=== PATIENT | male | born 1970 ===

== ENCOUNTER 2024-12-05 20:52 | Emergency (ER) | payer OTHER ==
[~2024-12-05] VITALS: Ht 175.3 cm; Wt 72.6 kg
[~2024-12-05 20:52] MED LIST: CRUTCH USE; HYDACE5 PO
[2024-12-05 23:32] LABS: BASOPHILS ABSOLUTE AUTO 0.05 K/mm3 (0.00-0.23); BASOPHILS PERCENT AUTO 1 % (0-2); EOSINOPHILS PERCENT AUTO 0 % (0-6); Hematocrit 36.1 % (37.0-53.0); Hemoglobin 12.5 g/dL (13.5-17.5); IMMATURE GRAN ABSOLUTE AUTO 0.03 K/mm3 (0.00-0.10); IMMATURE GRAN PERCENT AUTO 0 % (0-1); LYMPHOCYTES ABSOLUTE AUTO 0.54 K/mm3 (0.84-5.20); LYMPHOCYTES PERCENT AUTO 6 % (21-46); MONOCYTES ABSOLUTE AUTO 0.99 K/mm3 (0.16-1.47); MONOCYTES PERCENT AUTO 12 % (4-13); Mean Corpuscular HGB 34.1 pg (26.0-34.0); Mean Corpuscular HGB Conc 34.6 g/dL (31.5-36.5); Mean Corpuscular Volume 98 fL (80-100); Mean Platelet Volume 11.3 fL (9.1-12.4); NEUTROPHILS ABSOLUTE AUTO 6.81 K/mm3 (1.96-9.15); NEUTROPHILS PERCENT AUTO 81 % (41-73); Platelet Count 125 K/mm3 (150-400); RDW Coefficient Variation 15.3 % (11.7-14.2); RDW Standard Deviation 55.4 fL (35.1-46.3); Red Blood Cell Count 3.67 M/mm3 (4.30-5.90); White Blood Cell Count 8.42 K/mm3 (4.00-11.30)
[2024-12-05 23:45] LABS: International Normalized Ratio 1.14; Prothrombin Time Results 12.1 Sec (9.7-11.5)
[2024-12-05 23:53] LABS: Alanine Aminotransfer (ALT/SGP 69 U/L (12-78); Albumin, Blood 3.2 g/dL (3.4-5.0); Albumin/Globulin Ratio 0.7 (0.8-1.8); Alk Phos 214 U/L (50-136); Anion Gap 11 mmol/L (3-11); Aspartate Aminotrans (AST/SGOT 140 U/L (12-37); Bilirubin, Total 1.6 mg/dL (0.1-1.0); Blood Urea Nitrogen 32 mg/dL (8-24); Bun/Creatinine Ratio 48.4 (12.0-20.0); CO2, Blood 27 mmol/L (21-32); Calcium, Blood 9.2 mg/dL (8.5-10.1); Chloride, Blood 111 mmol/L (98-108); Creatinine, Blood 0.66 mg/dL (0.60-1.20); Ethanol (Alcohol), Blood, Med <3 mg/dL; Globulin, Blood 4.5 g/dL (2.2-4.0); Glomerular Filtration Rate 113 (60-); Glucose, Blood 120 mg/dL (70-99); Magnesium, Blood 1.8 mg/dL (1.6-2.4); Potassium, Blood 3.6 mmol/L (3.5-5.5); Sodium, Blood 145 mmol/L (136-145); Total Protein, Blood 7.7 g/dL (6.4-8.2)
[2024-12-06] MEDS ORDERED: OxyCODONE HCL 5 MG TAB PO ONE (02:10)
== END 2024-12-06 02:19 | disposition home or self-care (01) ==
LOC: ER 20:52
PROVIDERS: Emergency Medicine; Physician Assistant
DX: J35.8 Other chronic diseases of tonsils and adenoids (principal); Z79.899 Other long term (current) drug therapy
CPT/HCPCS: 70491; 80053; 80320; 83735; 85025; 85610; 93005; 93010; 99284-25; A9270; Q9967

== ENCOUNTER 2024-12-28 09:03 | Inpatient (IN) | payer OTHER ==
[~2024-12-28] VITALS: Ht 165.1 cm; Wt 53.0 kg
[~2024-12-28 09:03] MED LIST changes: +PERIDEX15 ML MM; +ROXICODONE PO
[2024-12-28] MEDS ORDERED: Lactated Ringer's 1,000 ML IV SCH ×2 (10:20→13:20)
[2024-12-28] MEDS ORDERED: CeFAZolin Sodium 2,000 MG in NS 100 ML IV SCH (10:20)
[2024-12-28] MEDS ORDERED: Lidocaine HCl 4% 5 ML SDA ONE ×2 (11:17→11:18)
[2024-12-28] MEDS ORDERED: Dexmedetomidine HCL 200 MCG / 2 ML ONE (11:19)
[2024-12-28] MEDS ORDERED: Dexamethasone Sod Phos 10 MG/ML 1ML VIAL ONE (11:19)
[2024-12-28] MEDS ORDERED: Bupivacaine 0.5% HCl 5 MG/ML 30MLVIAL ONE (11:33)
[2024-12-28 11:36] VITALS: BP 113/79
[2024-12-28] MEDS ORDERED: Midazolam HCl 1MG / ML 2ML Vial ONE (11:39)
[2024-12-28] MEDS ORDERED: FentaNYL Citrate 50 MCG/ML 2 ML Injection ONE (11:39)
--- NOTE | 2024-12-28 11:41 | NUR ---
History, Chart, Medications and Allergies reviewed before start of procedure. Patient up to Ambulate independently. Gait steady. Pre-Op teaching done. Pt verbalizes understanding. Patient confirms NPO status and agrees with scheduled surgery. Patient reports completing Chlorhexadine shower X1 prior to admission to hospital. Surgical site prepped with 2% Chlorhexidine cloth wipe. Lungs clear T/O to Auscultation. Patient States Post-Procedure ride home has been arranged.
[2024-12-28] MEDS ORDERED: propofoL 20 ML IV ONE (11:53)
--- NOTE | 2024-12-28 12:34 | NUR ---
12/28/24 1234 Rupert Landon PEG TUBE PLACED 2 CM @ SKIN
[2024-12-28] MEDS ORDERED: propofoL 100 ML IV ONE (12:55)
[2024-12-28 13:00] VITALS: BP 117/84
[2024-12-28] MEDS ORDERED: propofoL 100 ML IV SCH (13:05)
[2024-12-28] MEDS ORDERED: FLU VACC TS2024-25(6MOS UP)/PF 45 MCG/0.5 ML SYRINGE IM SCH (13:20)
[2024-12-28] MEDS ORDERED: FentaNYL Citrate 50 MCG/ML 2 ML Injection IV PRN (13:20)
[2024-12-28 13:30] VITALS: BP 116/84
--- NOTE | 2024-12-28 13:39 | NUR ---
THIS RN ASSUMED CARE OF PT AT 1300. PT IS INTUBATED AND SEDATED, PT IS WAKING UP AND TRYING TO PULL AT THE TUBE. HEART RATE IS IN THE 50s, BLOOD PRESSURE STABLE AT 116/84 MAP OF 95, UNABLE TO ASSESS FOR CHEST PAIN. PT IS ON THE VENTILATOR 25 AT THE TEETH, 16/380/40/5. DR. PEPPER HAS BEEN NOTIFIED, WILL COME SEE PT AT BEDSIDE SHORTLY. NO OTHER INTERVENTIONS AT THIS TIME. PLAN OF CARE CONTINUED.
[2024-12-28 14:00] VITALS: BP 96/71
[2024-12-28 15:00] VITALS: BP 131/90
--- NOTE | 2024-12-28 15:36 | NUR ---
PT WAS EXTUBATED AT 1456, TO ROOM AIR, SATTING 100%/ DR. PEPPER WAS AT BEDSIDE, PT STATES THEY ARE FEELING WELL, AND READY TO GO HOME. NO OTHER INTERVENTIONS AT THIS TIME, PLAN OF CARE CONTINUED.
[2024-12-28 17:11] VITALS: BP 118/96
--- NOTE | 2024-12-28 17:13 | NUR ---
PT IS BEING DISCHARGED HOME PER DR. HARRIS. PT HAS FOLLOW-UP APPOINTMENT TOMORROW WITH ONCOLOGIST AND FIELD REIMBURSEMENT MANAGER FOR EDUCATION ON HOW TO USE G-TUBE. IV TAKEN OUT, VITAL SIGNS STABLE.
== END 2024-12-28 17:19 | disposition home or self-care (01) | DRG 148 ==
LOC: ORSCSDS 09:03 → ORSCMMR 09:04 → ORSCSDS 10:15 → ICUE 11:55 → ORSCSDS 11:55 → ICUE 12:28
PROVIDERS: ADMIT Surgery
PROC: 0DH63UZ Insertion of Feeding Device into Stomach, Percutaneous Approach (ICD-10-PCS; principal; 2024-12-28 12:00)
DX: C01 Malignant neoplasm of base of tongue (principal); C09.9 Malignant neoplasm of tonsil, unspecified; F17.210 Nicotine dependence, cigarettes, uncomplicated; R13.10 Dysphagia, unspecified; E04.1 Nontoxic single thyroid nodule; R01.1 Cardiac murmur, unspecified; Z01.812 Encounter for preprocedural laboratory examination
CPT/HCPCS: 36415; 71045; 71260; 80048; 85025; 85610; 85730; 94002; C1769; J0690; J1100; J2003; J2250; J2704; J3010; J7120; Q9967